=== PATIENT | male | born 1985 | race Caucasian/White ===

== ENCOUNTER 2020-05-22 23:01 | Emergency (ER) | payer OTHER ==
[~2020-05-22 23:01] MED LIST: DOXYCYCLINE HY100 MG PO; IBUPROFEN800 MG PO; MUCINEX 600MG600 MG PO; PREDNISONE 20MG20 MG PO; TESSALON PERLE100 M1 PO; VENTOLIN HFA IN18 GM INH
[2020-05-23] MEDS ORDERED: PREDNISONE 20MG20 MG PO (02:03)
== END 2020-05-23 02:25 | disposition home or self-care (01) ==
LOC: FER 23:01
DX: J06.9 Acute upper respiratory infection, unspecified (principal); F17.200 Nicotine dependence, unspecified, uncomplicated
CPT/HCPCS: 36415; 71045; 84484; 93005; J1100; J2405

== ENCOUNTER 2021-05-24 20:07 | Emergency (ER) | payer OTHER | END 2021-05-24 22:14 | disposition home or self-care (01) | LOC: FER 20:07 | DX: S92.424A Nondisplaced fracture of distal phalanx of right great toe, initial encounter for closed fracture (principal); F17.210 Nicotine dependence, cigarettes, uncomplicated; Z88.8 Allergy status to other drugs, medicaments and biological substances; W45.8XXA Other foreign body or object entering through skin, initial encounter; Y92.009 Unspecified place in unspecified non-institutional (private) residence as the place of occurrence of the external cause | CPT/HCPCS: 73620 ==